=== PATIENT | male | born 1975 | race Caucasian/White ===

== ENCOUNTER 2016-11-12 10:05 | Emergency (ER) | payer SELFPAY ==
--- NOTE | ~2016-11-12 | CR126 ---
[facility] A Service of [facility] & [facility] RADIOLOGY TEXT RESULTS PATIENT: ASA ROMERO LOCATION: SED : 77 UNIT #: [id number] AGE: [address]: Clara Nava MD SEX: M ORDER DR: [id number] [address] [place] [id number] E MR#: [id number] Acc #: [id number] NAME: ASA ROMERO. : 1975 SEX: M STUDY DATE/TIME: 11/12/2016 11:15 UNIT: SED ROOM: STUDY DESCRIPTION: CR Foot Complete Min 3 View Lt Attending Physician: Clara Nava M.D. Ordering Physician: Clara Nava M.D. Primary Care Physician: No Primary Care Physician MEDICAL IMAGING REPORT This report is preliminary unless electronic signature is present. EXAM Left foot, 3 views; 11/12/2016, 1115 hours. CLINICAL HISTORY Puncture wound with nail in foot yesterday. Foot pain. COMPARISON None. FINDINGS AP, lateral and oblique views are performed. There is a marker indicating the site of puncture wound on the lateral view. Overall bone density is normal. There is no fracture, dislocation or radiopaque foreign body. IMPRESSION No fracture, dislocation or radiopaque foreign body. Dictated by... Geovanna Austin M.D. THIS IS AN ELECTRONICALLY VERIFIED REPORT Geovanna Austin M.D. at 11/13/2016 9:25 AM ELOISA/joel TD: 11/12/2016 20:24 JOB #: [id number] MEDICAL IMAGING REPORT Page 1 of 1
[~2016-11-12 10:05] MED LIST: BACITRACIN30 GM TOP; CIPRO PO; FLAGYL PO; FLEXERIL PO; KEFLEX500 MG PO; NO MEDICATIONS; PHENERGAN DM1 ML PO; TYLENOL #3 PO; VICODIN 5/1 TAB 5/50 PO; VICODIN 5/500 T1 TAB PO; ZITHROMAX PO; ZOFRANODT PO
== END 2016-11-12 11:54 | disposition home or self-care (01) ==
LOC: SED 10:05
DX: S91.332A Puncture wound without foreign body, left foot, initial encounter (principal); F17.200 Nicotine dependence, unspecified, uncomplicated; X58.XXXA Exposure to other specified factors, initial encounter; Z23 Encounter for immunization
CPT/HCPCS: 73630; 90471; 90715; 99283